=== PATIENT | female | born 1955 | race Caucasian/White ===

== ENCOUNTER → 2016-11-28 | Outpatient (CLI) | payer BC ==
--- NOTE | 2016-11-29 10:02 | MM ---
Reason for exam: screening (asymptomatic). Last mammogram was performed 1 year ago. History: Patient is postmenopausal. Family history of breast cancer in sister at age 40 and breast cancer in paternal aunt at age 80. Physical Findings: A clinical breast exam by your physician is recommended on an annual basis and results should be correlated with mammographic findings. MG 3D Screening Mammo W/Cad Bilateral CC and MLO view(s) were taken. Prior study comparison: December 07, 2015, bilateral MG screening mammo w CAD. November 25, 2014, bilateral MG screening mammo w CAD. The breast tissue is heterogeneously dense. This may lower the sensitivity of mammography. There is no discrete abnormality. No significant changes when compared with prior studies. ASSESSMENT: Negative, BI-RAD 1 RECOMMENDATION: Routine screening mammogram of both breasts in 1 year.
== END | disposition home or self-care (01) ==
LOC: RADMAMWWP 08:04
PROVIDERS: ATTEND Internal Medicine
DX: Z12.31 Encounter for screening mammogram for malignant neoplasm of breast (principal)
CPT/HCPCS: 77063; G0202

== ENCOUNTER → 2017-01-09 | Outpatient (CLI) | payer BC ==
--- NOTE | 2017-01-09 08:12 | BD ---
EXAMINATION TYPE: MG DEXA axial skeleton. DATE OF EXAM: 01/09/2017 7:36 AM CLINICAL HISTORY: Height: 66 Weight: 164 FRAX RISK QUESTIONS: Alcohol (3 or more units per day): no Family History (Parent hip fracture): no Glucocorticoids (More than 3mos): no (Ex: prednisone, prednisolone, methylprednisolone, dexamethasone, and hydrocortisone). History of Fracture in Adulthood: no Secondary Osteoporosis: 1. Type 1 Diabetes: no 2. Hyperthyroidism: no 3. Menopause before 45: no 4. Malnutrition: no 5. Chronic liver disease: no Rheumatoid Arthritis: no Current Tobacco Use: no RISK FACTORS HISTORY OF: Family History of Osteoporosis: yes, mother Drink Alcohol: very very minimal consumption Active: yes Diet low in dairy products/other sources of calcium: somewhat Postmenopausal woman: yes Take estrogen and/or progesterone medications: no Lost more than 2 inches in height since high school: no Frequent falls: no Poor Health: no Hyperparathyroidism: no Adrenal Insufficiency: no MEDICATIONS: Prednisone or other steroids: no Thyroid Medications: no Osteoporosis Medications: no EXAM MEASUREMENTS: Bone mineral densitometry was performed using the [employer] System. Bone mineral density as measured about the Lumbar spine is: ----- L1-L4(G/cm2): 0.995 T Score Values are as follows: ----- L2: -1.6 ----- L3: -1.7 ----- L4: -1.3 ----- L1-L4: -1.5 Bone mineral density BASELINE Bone mineral density about the R hip (g/cm2): 1.007 Bone mineral density about the L hip (g/cm2): 0.946 T Score values are as follows: -----R Neck: -0.2 -----L Neck: -0.7 -----R Intertrochanter: -0.2 -----L Intertrochanter: -0.5 Bone mineral density BASELINE IMPRESSION: Normal (Values between +1 and -1 indicate normal bone mass) Bilateral Hips Osteopenia (T Score between -2.5 and -1 as noted by T score values Lumbar Spine There is slightly increased risk of fracture and the patient may be considered for treatment. Re-Screen 1-2 years. NOTE: T-SCORE=SD OF THE YOUNG ADULT MEAN.
== END | disposition home or self-care (01) ==
LOC: RADBDWWP 07:09
PROVIDERS: ATTEND Internal Medicine
DX: M85.88 Other specified disorders of bone density and structure, other site (principal); Z78.0 Asymptomatic menopausal state
CPT/HCPCS: 77080

== ENCOUNTER → 2017-12-04 | Outpatient (CLI) | payer BC ==
--- NOTE | 2017-12-04 11:50 | PN ---
PROGRESS NOTE DATE OF SERVICE: 12/04/2017 A 62-year-old lady has been followed in the Sleep Center for treatment of obstructive sleep apnea-hypopnea syndrome. The patient continued to use her CPAP equipment every night but recently she started to wake up from sleep, developed a little bit more sleepiness during the day. [place] Sleepiness Scale is slightly increased to 9 today. She also is for changing of her mask. I checked patient's CPAP unit. CPAP pressure is 7 cm of water. Patient is using equipment 100% of the time more than 4 hours every 7 hours and 12 minutes. The machine does not have information about patient breathing during the sleep. MEDICATIONS: None. PHYSICAL EXAM: Patient in no distress. BP 114/82, HR 86, RR 16, height 5, 6, weight 168, BMI 27.9. Patient increased her weight around 8 pounds comparing with the weight during the titration. Temperature 97.3, oxygen saturation at room air 97%. OROPHARYNX: Wide pillars, short distance between soft palate and posterior pharyngeal wall. Neck Supple, no JVD. Thyroid is not palpable. LUNGS Clear to percussion and to auscultation. Good air exchange. No wheezing or rhonchi. HEART S1, S2 regular. No murmurs, gallops, or rubs. ABDOMEN Soft and nontender. Bowel sounds are present. No organomegaly appreciated. EXTREMITIES No clubbing or cyanosis. BURNER OPERATOR Awake, alert, and oriented X3. Cranial nerves 2 to 7 intact. There is no fasciculation or atrophy. noted. No focal deficits observed. IMPRESSION: 1. Obstructive sleep apnea-hypopnea syndrome. Patient demonstrated 100% compliance with treatment benefitting from treatment. Recently developed some sleepiness and awakenings on CPAP. 2. Status post tubal ligation. 3. Menopause. PLAN: 1. I increased pressure in CPAP unit up to 8 cm of water. 2. Prescription for CPAP supplies including mask, tube, filters and new water chamber. 3. Continue using equipment every night for the whole night. 4. No driving if feeling any sleepiness. Thank you very much for allowing me to participate in the management of your patient. Sincerely, Dereck Ochoa MD, PhD, FAASM Diplomat of [place] [employer] [place] [employer] Dressmaking Teacher of [facility] MMODL / IJN: [id number] /
== END | disposition home or self-care (01) ==
LOC: SLEEP 10:30
PROVIDERS: ATTEND Internal Medicine
DX: G47.33 Obstructive sleep apnea (adult) (pediatric) (principal); Z99.89 Dependence on other enabling machines and devices; Z98.51 Tubal ligation status; Z78.0 Asymptomatic menopausal state

== ENCOUNTER → 2017-12-17 | Outpatient (CLI) | payer BC ==
--- NOTE | 2017-12-18 13:32 | MM ---
Reason for exam: screening (asymptomatic). Last mammogram was performed 1 year and 1 month ago. History: Patient is postmenopausal. Family history of breast cancer in sister at age 40 and breast cancer in paternal aunt at age 80. Physical Findings: A clinical breast exam by your physician is recommended on an annual basis and results should be correlated with mammographic findings. MG Screening Mammo w CAD Bilateral CC and MLO view(s) were taken. Prior study comparison: November 28, 2016, bilateral MG 3d screening mammo w/cad. December 07, 2015, bilateral MG screening mammo w CAD. The breast tissue is heterogeneously dense. This may lower the sensitivity of mammography. No significant changes when compared with prior studies. ASSESSMENT: Negative, BI-RAD 1 RECOMMENDATION: Routine screening mammogram of both breasts in 1 year.
== END | disposition home or self-care (01) ==
LOC: RADMAMWWP 07:45
PROVIDERS: ATTEND Internal Medicine
DX: Z12.31 Encounter for screening mammogram for malignant neoplasm of breast (principal)
CPT/HCPCS: 77067

== ENCOUNTER → 2018-02-26 | Outpatient (CLI) | payer BC ==
--- NOTE | 2018-02-26 11:57 | SFUN ---
SLEEP CENTER FOLLOW UP NOTE DATE OF SERVICE: 02/26/2018 A 62-year-old lady who has been followed in the Sleep Center for treatment of obstructive sleep apnea-hypopnea syndrome. Recently, she received her CPAP unit. She is using CPAP equipment every night for the whole night without any problems. No snoring with the machine. [place] Sleepiness Scale is 9. She sleeps well. I checked patient's CPAP unit. Usage is 100% of the time more than 4 hours, average 6.8 hours. Pressure is 8 cm of water. Leak is up to 20 L/minute which is acceptable. Apnea-hypopnea index only 0.4, which is perfect. MEDICATIONS: None. PHYSICAL EXAM: BP 117/66, HR 72, RR 16, weight 166, temp 97.9, oxygen saturation at room air 97%. OROPHARYNX: Wide pillar, short distance between soft palate and posterior pharyngeal wall. Neck Supple, no JVD. Thyroid is not palpable. LUNGS Clear to percussion and to auscultation. Good air exchange. No wheezing or rhonchi. HEART S1, S2 regular. No murmurs, gallops, or rubs. ABDOMEN Soft and nontender. Bowel sounds are present. No organomegaly appreciated. EXTREMITIES No clubbing or cyanosis. SUPERINTENDENT WATER AND SEWER SYSTEMS Awake, alert, and oriented X3. Cranial nerves 2 to 7 intact. There is no fasciculation or atrophy. noted. No focal deficits observed. IMPRESSION: 1. Obstructive sleep apnea-hypopnea syndrome. Patient demonstrated 100% compliance with treatment benefitting from treatment. 2. Status post tubal ligation. 3. Menopause. PLAN: 1. Continue treatment with CPAP every night for the whole night with a pressure of 8 cm of water. 2. No driving if feeling sleepiness. 3. Sleep hygiene with regular time in bed for at least 8 hours. Thank you very much for allowing me to participate in the management of your patient. Sincerely, Dereck Ochoa MD, PhD, FAASM Diplomat of [place] [employer] [place] [employer] Client Relations Specialist of [facility] [place] MMLORIE / ISAURA: [id number] /
== END | disposition home or self-care (01) ==
LOC: SLEEP 10:27
PROVIDERS: ATTEND Internal Medicine
DX: G47.33 Obstructive sleep apnea (adult) (pediatric) (principal); Z98.890 Other specified postprocedural states; Z78.0 Asymptomatic menopausal state; Z99.89 Dependence on other enabling machines and devices

== ENCOUNTER → 2018-11-27 | Outpatient (CLI) | payer BC ==
--- NOTE | 2018-12-04 08:20 | MM ---
Reason for exam: screening (asymptomatic). Last mammogram was performed 11 months ago. History: Patient is postmenopausal. Family history of breast cancer in sister at age 40 and breast cancer in paternal aunt at age 80. MG Screening Mammo w CAD Bilateral CC and MLO view(s) were taken. Prior study comparison: December 17, 2017, bilateral MG screening mammo w CAD. November 28, 2016, bilateral MG 3d screening mammo w/cad. The breast tissue is heterogeneously dense. This may lower the sensitivity of mammography. No suspiciou abnormality. No significant changes when compared with prior studies. ASSESSMENT: Negative, BI-RAD 1 RECOMMENDATION: Routine screening mammogram of both breasts in 1 year.
== END | disposition home or self-care (01) ==
LOC: RADMAMWWP 10:35
PROVIDERS: ATTEND Internal Medicine
DX: Z12.31 Encounter for screening mammogram for malignant neoplasm of breast (principal)
CPT/HCPCS: 77067

== ENCOUNTER → 2019-04-08 | Outpatient (CLI) | payer BC ==
--- NOTE | 2019-04-08 11:39 | PN ---
PROGRESS NOTE DATE OF SERVICE: 04/08/2019 63-year-old lady has been followed in Sleep Center for treatment of obstructive sleep apnea-hypopnea syndrome. Patient successfully continued to use her CPAP equipment every night without significant problems related to mask fitting, pressure and humidification. The patient is using a nasal mask. [place] Sleepiness Scale today is 3, which is normal. I checked the patient's CPAP unit. Usage is 100% of night more than 4 hours. Average usage is 6.9 hours. Pressure is 8 cm of water. Apnea-hypopnea index only 0.3, which is absolutely perfect. MEDICATIONS: None. PHYSICAL EXAM: Patient in no distress. BP 127/71, HR 70, RR 16, height 5 feet 6 inches, weight 172 pounds. Body mass index 27.7, temperature 98.2, oxygen saturation at room air 95% HEENT: Oropharynx: Short distance between soft palate and pharyngeal wall. Wide pillars. Neck Supple, no JVD. Thyroid is not palpable. LUNGS Clear to percussion and to auscultation. Good air exchange. No wheezing or rhonchi. HEART S1, S2 regular. No murmurs, gallops, or rubs. ABDOMEN Soft and nontender. Bowel sounds are present. No organomegaly appreciated. EXTREMITIES No clubbing or cyanosis. TEA BAG MACHINE TENDER Awake, alert, and oriented X3. Cranial nerves 2 to 7 intact. There is no fasciculation or atrophy. noted. No focal deficits observed. IMPRESSION: 1. Obstructive sleep apnea-hypopnea syndrome, on full control with CPAP. Patient demonstrated 100% compliance with treatment benefitting from treatment. 2. Status post tubal ligation. 3. Menopause. PLAN: 1. Patient will continue to use CPAP equipment every night. 2. Prescription for all necessary CPAP supplies including mask, tube, filters. 3. Watching weight. The patient increased her weight on 6 pounds since previous visit. 4. No driving if feeling sleepiness. 5. Followup visit in 1 year or earlier if patient has any problems. Thank you very much for allowing me to participate in management of your patient. Sincerely, Dereck Ochoa MD, PhD, FAASM Diplomat of [employer] [place] [employer] Medicine Manager [facility] [place] MMODL / IJN: [id number] /
== END | disposition home or self-care (01) ==
LOC: SLEEP 10:05
PROVIDERS: ATTEND Internal Medicine
DX: G47.33 Obstructive sleep apnea (adult) (pediatric) (principal); Z98.51 Tubal ligation status; Z78.0 Asymptomatic menopausal state; Z99.89 Dependence on other enabling machines and devices

== ENCOUNTER → 2019-08-30 | Outpatient (CLI) | payer BC ==
--- NOTE | 2019-08-30 09:47 | US ---
EXAMINATION TYPE: US gallbladder DATE OF EXAM: 08/30/2019 COMPARISON: NONE CLINICAL HISTORY: R10.13 Epigastric pain. Severe epigastric pain x d2 or 3 episodes EXAM MEASUREMENTS: Liver Length: 15.4 cm Gallbladder Wall: 0.1 cm CBD: 0.5 cm Right Kidney: 9.8 x 4.9 x 4.1 cm Pancreas: wnl Liver: wnl Gallbladder: nonmobile, shadowing stone = 3.5 x 2.5 x 1.0cm seen in neck (JOE sign); sludge in mid a nd fundal portions; wall polyp versus adenomyomatosis in fundal anterior wall with questionable comet tail artifact Evidence for sonographic Toussaint's sign: not at time of US CBD: wnl Right Kidney: No hydronephrosis or masses seen IMPRESSION: No sonographic evidence of acute cholecystitis however there are calculi seen in the gall bladder neck with biliary sludge in the gallbladder body and fundus as well as a nondependent anterio r fundal polyp versus segmental adenomyomatosis.
== END | disposition home or self-care (01) ==
LOC: RADUSMAIN 08:01
PROVIDERS: ATTEND Internal Medicine
DX: R10.13 Epigastric pain (principal)
CPT/HCPCS: 76705

== ENCOUNTER → 2019-09-09 | Outpatient (CLI) | payer BC ==
[2019-09-09 11:51] LABS: Basophils # (A) 0.1 k/uL (0-0.2); Basophils % (A) 2 %; Eosinophils # (A) 0.6 k/uL (0-0.7); Eosinophils % (A) 8 %; HCT 44.8 % (34.0-46.0); HGB 14.3 gm/dL (11.4-16.0); Lymphocytes # (A) 2.3 k/uL (1.0-4.8); Lymphocytes % (A) 30 %; MCH 29.6 pg (25.0-35.0); MCV 92.6 fL (80.0-100.0); Mean Platelet Volume 6.4; Monocytes # (A) 0.4 k/uL (0-1.0); Monocytes % (A) 6 %; Neutrophils % (A) 52 %; Platelet Count 327 k/uL (150-450); RBC 4.84 m/uL (3.80-5.40); RDW 12.3 % (11.5-15.5); WBC 7.7 k/uL (3.8-10.6)
[2019-09-09 19:35] LABS: African American GFR (CKD) 56.1 (60.0-200.0); Albumin 4.6 g/dL (3.80-4.90); Anion Gap 9.2 mmol/L (4.00-12.00); BUN/Creat Ratio 18.33 Ratio (12.00-20.00); Calcium 9.5 mg/dL (8.7-10.3); Carbon Dioxide 28.8 mmol/L (21.6-31.8); Globulin 2.3 g/dL (1.6-3.3); Potassium 5.1 mmol/L (3.5-5.5); Total Bilirubin 0.5 mg/dL (0.2-1.2); Total Protein 6.9 g/dL (6.2-8.2)
== END | disposition home or self-care (01) ==
LOC: LABWHC1 10:25
PROVIDERS: ATTEND Surgery
DX: K81.9 Cholecystitis, unspecified (principal)
CPT/HCPCS: 36415; 80053; 83690; 85025

== ENCOUNTER 2019-09-20 06:14 | Day surgery (SDC) | payer BC ==
[2019-09-16 09:29] VITALS: BMI 26.6
[~2019-09-20 06:14] MED LIST: DEXAMETHASONE SOD PHOSPHATE 10 MG/ML 1 ML VIAL IV ONE; HEPARIN SODIUM,PORCINE 5,000 UNIT/ML 1 ML VIAL SQ ONE; HYDROmorphone 0.5 MG/0.5 ML SYRINGE IVP PRN; LACTATED RINGERS 1,000 ML IV SCH; MIDAZOLAM 2 MG/2 ML VIAL IV PRN; ONDANSETRON 4 MG/2 ML VIAL IVP ONE; SCOPOLAMINE 1.5MG/72HR PATCH TRANSDERM ONE
[2019-09-20] MEDS ORDERED: LIDOCAINE 1% 20 ML VIAL (10MG/ML) FOR IV START INTRADERMA ONE (06:32)
[2019-09-20] MEDS ORDERED: LACTATED RINGERS 1,000 ML IV ONE ×2 (06:49→08:53)
[2019-09-20] MEDS ORDERED: NEOSTIGMINE 1 MG/ML 10 ML VIAL ONE (07:38)
[2019-09-20] MEDS ORDERED: KETOROLAC 30 MG/ML 1 ML VIAL ONE (07:38)
[2019-09-20] MEDS ORDERED: NALOXONE 0.4 MG/ML 1 ML VIAL ONE (07:38)
[2019-09-20] MEDS ORDERED: GLYCOPYRROLATE 0.2 MG/ML 2 ML VIAL ONE (07:38)
[2019-09-20] MEDS ORDERED: PROPOFOL 10 MG/ML 20 ML VIAL IV ONE (07:38)
[2019-09-20] MEDS ORDERED: MIDAZOLAM 2 MG/2 ML VIAL ONE (07:38)
[2019-09-20] MEDS ORDERED: ROCURONIUM BROMIDE 10 MG/ML 10 ML VIAL IV ONE (07:38)
[2019-09-20] MEDS ORDERED: fentaNYL (PF) 50 MCG/ML 2 ML AMP ONE (07:38)
[2019-09-20] MEDS ORDERED: LIDOCAINE 1% INJ 10MG/ML (20 ML MDV) ONE (07:38)
[2019-09-20] MEDS ORDERED: BUPIVACAINE (PF) 0.25% 30 ML VIAL SQ ONE (08:09)
--- NOTE | 2019-09-20 08:59 | P.OP ---
Date of Procedure: 09/20/19 Procedure(s) Performed: PREOPERATIVE DIAGNOSIS: Chronic cholecystitis POSTOPERATIVE DIAGNOSIS: Same, umbilical hernia PROCEDURE: Laparoscopic cholecystectomy, repair umbilical hernia SURGEON: Moris EBL: Minimal see anesthesia record ANESTHESIA: Gen. COMPLICATIONS: None OPERATIVE PROCEDURE: The patient was brought and placed on the operating room table in the supine position. The patient was placed under general anesthesia at that time. The abdomen was prepped and draped in the usual sterile fashion. A small vertical infraumbilical incision was made. The patient had a small hernia identified at that time. A less than 1 cm piece of fat was coming through a small defect in the fascia. This was excised using electrocautery. Through that same defect the Veress needle was advanced into the peritoneal cavity. The saline drop test was normal. Insufflation took place up to 15 mmHg. A 5 mm optical trocar was advanced and the peritoneal cavity. 2 additional 5 mm trochars were placed in the right upper quadrant under direct visualization. A 12 mm trocar was advanced into the epigastric incision site. The gallbladder was retracted superiorly and laterally. The peritoneum overlying the infundibulum was bluntly dissected. The patient's cystic duct was visualized. The junction between the cystic duct common and hepatic duct was identified. The cystic duct was then divided after placement of 3 12 mm clips on the patient's side and one on the specimen side. The cystic artery was iden tified and clipped as well. A small vessel was seen along the gallbladder fossa and clipped as well. The gallbladder was then removed from the liver bed using electrocautery. The gallbladder was then removed from the epigastric trocar site with an Endo Catch bag. This required lengthening of the incision and the fascia given the size of the stone. The gallbladder fossa was irrigated with saline. There was no evidence of any bleeding or biliary drainage seen. The fascia at the 12 millimeter site was closed using a running 0 Vicryl stitch. The trochars were then removed. An additional 0 Vicryl stitch was used to close the defect at the umbilicus. The skin at all 4 sites was closed using a 4-0 Monocryl stitch. Skin glue was utilized on the incision sites. At the end of this procedure the sponge and needle counts were correct. DISPOSITION: Stable to the recovery room
[2019-09-20 09:12] VITALS: RESP 16; TEMP 97.4
[2019-09-20 11:13] VITALS: BP 148/80; PULSE 72
== END 2019-09-20 11:10 | disposition home or self-care (01) ==
LOC: OR 06:14
PROVIDERS: ATTEND Surgery
DX: K80.10 Calculus of gallbladder with chronic cholecystitis without obstruction (principal); K42.9 Umbilical hernia without obstruction or gangrene; Z82.49 Family history of ischemic heart disease and other diseases of the circulatory system; Z80.3 Family history of malignant neoplasm of breast; Z80.43 Family history of malignant neoplasm of testis; Z84.89 Family history of other specified conditions; Z88.0 Allergy status to penicillin; G47.33 Obstructive sleep apnea (adult) (pediatric); Z99.89 Dependence on other enabling machines and devices; Z98.51 Tubal ligation status
CPT/HCPCS: 47562; 49585; 88304; J2250; J1644; J1100; J2310; J2710; J0690; J2405; J2001; J3010; J1885; J2704

== ENCOUNTER → 2019-12-01 | Outpatient (CLI) | payer BC ==
--- NOTE | 2019-12-03 08:23 | MM ---
Reason for exam: screening (asymptomatic). Last mammogram was performed 1 year ago. History: Patient is postmenopausal. Family history of breast cancer in sister at age 40 and breast cancer in paternal aunt at age 80. Physical Findings: A clinical breast exam by your physician is recommended on an annual basis and results should be correlated with mammographic findings. MG Screening Mammo w CAD Bilateral CC and MLO view(s) were taken. Prior study comparison: November 27, 2018, bilateral MG screening mammo w CAD. December 17, 2017, bilateral MG screening mammo w CAD. The breast tissue is heterogeneously dense. This may lower the sensitivity of mammography. No suspicious abnormality. No significant changes when compared with prior studies. ASSESSMENT: Negative, BI-RAD 1 RECOMMENDATION: Routine screening mammogram of both breasts in 1 year.
== END | disposition home or self-care (01) ==
LOC: RADMAMWWP 07:10
PROVIDERS: ATTEND Internal Medicine
DX: Z12.31 Encounter for screening mammogram for malignant neoplasm of breast (principal)
CPT/HCPCS: 77067

== ENCOUNTER → 2019-12-21 | Outpatient (CLI) | payer BC ==
--- NOTE | 2019-12-21 08:49 | US ---
EXAMINATION TYPE: US kidneys/renal and bladder DATE OF EXAM: 12/21/2019 COMPARISON: NONE CLINICAL HISTORY: 64-year-old female N18.9 chronic kidney disease. CKD TECHNIQUE: Multiple sonographic images of the kidneys and bladder are obtained. FINDINGS: EXAM MEASUREMENTS: Right Kidney: 8.8 x 3.8 x 4.1 cm Left Kidney: 10.1 x 4.6 x 4.0 cm No hydronephrosis on either side. Bladder: wnl Bilateral Jets seen: No IMPRESSION: No hydronephrosis.
== END | disposition home or self-care (01) ==
LOC: RADUSWWP 06:53
PROVIDERS: ATTEND Internal Medicine
DX: N18.9 Chronic kidney disease, unspecified (principal)
CPT/HCPCS: 76770

== ENCOUNTER 2020-04-28 09:17 | Day surgery (SDC) | payer BC ==
[2020-04-26 10:16] VITALS: BMI 27.4
[~2020-04-28 09:17] MED LIST changes: -DEXAMETHASONE SOD PHOSPHATE 10 MG/ML 1 ML VIAL IV ONE; -HEPARIN SODIUM,PORCINE 5,000 UNIT/ML 1 ML VIAL SQ ONE; -HYDROmorphone 0.5 MG/0.5 ML SYRINGE IVP PRN; +LIDOCAINE 1% (10MG/ML) FOR IV START INTRADERMA PRN; -ONDANSETRON 4 MG/2 ML VIAL IVP ONE; -SCOPOLAMINE 1.5MG/72HR PATCH TRANSDERM ONE
[2020-04-28 09:49] VITALS: RESP 16; TEMP 96.6
[2020-04-28] MEDS ORDERED: PROPOFOL 10 MG/ML 20 ML VIAL IV ONE (09:53)
--- NOTE | 2020-04-28 10:07 | P.PCN ---
Date of Procedure: 04/28/20 Procedure(s) Performed: BRIEF HISTORY: Patient is a 64-year-old pleasant female scheduled for an elective colonoscopy as a part of screening for colorectal neoplasia. PROCEDURE PERFORMED: Colonoscopy with snare polypectomy. PREOPERATIVE DIAGNOSIS: Screening for colon cancer. IV sedation per Anesthesia. PROCEDURE: After informed consent was obtained, the patient, was brought into the endoscopy unit. IV sedation was administered by Anesthesia under continuous monitoring. Digital rectal examination was normal. Initially the Olympus CF-160 flexible video colonoscope was then inserted in the rectum, gradually advanced into the cecum without any difficulty. Careful examination was performed as the scope was gradually being withdrawn. Ileocecal valve and the appendiceal orifice were visualized and appeared normal. Prep was excellent. In the base of the cecum there was a 5 mm polyp that was removed by snare polypectomy. Mucosa of the cecum, ascending colon, transverse colon, descending colon, sigmoid colon, and rectum appeared normal. Retroflexion was performed in the rectum and no lesi ons were seen. The patient tolerated the procedure well. IMPRESSION: 5 mm cecal polyp status post polypectomy Rest of the colon appeared RECOMMENDATIONS: Findings of this examination were discussed with the patient as well as a family. She was advised to follow with the biopsy results. If the biopsy shows an adenoma she can have a repeat colonoscopy in 5 years.
[2020-04-28 10:40] VITALS: BP 118/75; PULSE 65
== END 2020-04-28 10:48 | disposition home or self-care (01) ==
LOC: ORWHC2ENDO 09:17
PROVIDERS: ATTEND Internal Medicine Gastroenterology
DX: Z12.11 Encounter for screening for malignant neoplasm of colon (principal); K63.5 Polyp of colon; Z88.0 Allergy status to penicillin; Z90.49 Acquired absence of other specified parts of digestive tract; Z98.51 Tubal ligation status
CPT/HCPCS: 88305; 45385; J2704

== ENCOUNTER → 2020-10-18 | Outpatient (CLI) | payer BC ==
--- NOTE | 2020-10-19 05:16 | SFUN ---
SLEEP CENTER FOLLOW UP NOTE DATE OF SERVICE: 10/18/2020 This 64-year-old lady who has been followed in Sleep Center for treatment of obstructive sleep apnea-hypopnea syndrome. The patient successfully continuing to use her CPAP equipment every night, does not snore with the machine. Sometimes she has awakenings in the middle of the night and then she may read for about one hour and then she will fall asleep again. I checked her CPAP unit. Usage is 100% of night for more than 4 hours. Average usage is 7.3 hours per night. CPAP pressure is 8 cm of water. Leak is up to 28 L/minute. Apnea-hypopnea index was only 0.5, which is perfect. MEDICATIONS: Melatonin. [place] Sleepiness Scale is 7. PHYSICAL EXAMINATION: GENERAL: Patient in no distress. VITAL SIGNS: BP 124/65, HR 76, RR 15, height 5 feet 6 inches, weight 174 pounds, body mass index 28.0, temperature 98, oxygen saturation at room air 98%. HEENT: PERRLA, EOMI. Oropharynx short distance between soft palate and pharyngeal wall. NECK: Supple, no JVD. Thyroid is not palpable. LUNGS: Clear to percussion and to auscultation. Good air exchange. No wheezing or rhonchi. HEART: S1, S2 regular. No murmurs, gallops, or rubs. ABDOMEN: Soft and nontender. Bowel sounds are present. No organomegaly appreciated. EXTREMITIES: No clubbing or cyanosis. WASTE DISPOSAL LEAKAGE TESTER: Awake, alert, and oriented X3. Cranial nerves 2 to 7 intact. There is no fasciculation or atrophy. noted. No focal deficits observed. IMPRESSION: 1. Obstructive sleep apnea-hypopnea syndrome. Patient demonstrated 100% compliance with treatment, benefitting from treatment. 2. Episodes of insomnia. 3. Menopause. 4. Status post tubal ligation. PLAN: 1. Patient will continue to use PAP equipment every night for the whole night. 2. Sleep hygiene with regular time in bed for at least 7-1/2 to 8 hours. 3. Precautions related to driving. No driving if feeling sleepiness. 4. I will maintain all necessary prescription for PAP supplies including mask, tube, filters. 5. Watching weight. 6. No driving if feeling sleepiness. 7. Follow-up visit in 6 months or earlier if patient has any problems. 8. I discussed with the patient psychological techniques for treatment of insomnia including paradoxical intention and stimulus control. Thank you very much for allowing me to participate in management of your patient. Sincerely, Dereck Ochoa MD, PhD, FAASM Diplomat of [place] [employer] [place] [employer] Performance Test Engineer of [facility] [place] MMODL / BINUN: [id number] /
== END | disposition home or self-care (01) ==
LOC: SLEEP 16:16
PROVIDERS: ATTEND Internal Medicine
DX: G47.33 Obstructive sleep apnea (adult) (pediatric) (principal); G47.00 Insomnia, unspecified; Z99.89 Dependence on other enabling machines and devices; Z78.0 Asymptomatic menopausal state; Z98.51 Tubal ligation status

== ENCOUNTER → 2021-01-18 | Outpatient (CLI) | payer BC ==
--- NOTE | 2021-01-18 14:42 | MM ---
Reason for exam: screening (asymptomatic). Last mammogram was performed 1 year and 2 months ago. History: Patient is postmenopausal. Family history of breast cancer in sister at age 40 and breast cancer in paternal aunt at age 80. Physical Findings: A clinical breast exam by your physician is recommended on an annual basis and results should be correlated with mammographic findings. MG 3D Screening Mammo W/Cad Bilateral CC, MLO, and XCCL view(s) were taken. Prior study comparison: December 01, 2019, bilateral MG screening mammo w CAD. November 27, 2018, bilateral MG screening mammo w CAD. The breast tissue is heterogeneously dense. This may lower the sensitivity of mammography. Finding: There is a 4 mm oval mass located 3 cm from the nipple in the anterior position of the right breast, CC 11/60 and MLO 23/64. Benign bilateral axillary lymph nodes. New finding since December 01, 2019 and November 27, 2018. ASSESSMENT: Incomplete: need additional imaging evaluation, BI-RAD 0 RECOMMENDATION: Ultrasound of the right breast. [facility] will attempt to contact patient to return for ultrasound.
== END ==
LOC: RADMAMWWP 09:56
PROVIDERS: ATTEND Internal Medicine Geriatric Medicine
DX: Z12.31 Encounter for screening mammogram for malignant neoplasm of breast (principal); Z78.0 Asymptomatic menopausal state; Z80.3 Family history of malignant neoplasm of breast
CPT/HCPCS: 77063; 77067

== ENCOUNTER → 2021-01-22 | Outpatient (CLI) | payer BC ==
--- NOTE | 2021-01-22 17:06 | BD ---
EXAMINATION TYPE: Axial Bone Density DATE OF EXAM: 01/22/2021 COMPARISON: 01.09.2017 CLINICAL HISTORY: 65 YR OLD FEMALE.....ICD-10 CODE: M81.0 OSTEOPOROSIS Height: 65.4 Weight: 166 FRAX RISK QUESTIONS: NOTHING TO NOTE HERE RISK FACTORS HISTORY OF: Family History of Osteoporosis: YES, HER MOTHER WITHOUT HIP FX Active: YES Postmenopausal woman: YES, AT ABOUT 56 Hyperparathyroidism: NO Adrenal Insufficiency: NO MEDICATIONS: Additional Medications: VIT D AND MULTIVITAMIN Additional History: NOTHING ADDITIONAL EXAM MEASUREMENTS: Bone mineral densitometry was performed using the [employer] System. Bone mineral density as measured about the Lumbar spine is: ----- L1-L4(G/cm2): 1.015 T Score Values are as follows: ----- L1: -1.7 ----- L2: -1.4 ----- L3: -1.4 ----- L4: -1.2 ----- L1-L4: -1.4 Bone mineral density has: Increased 2.6% since study of: 01.09.2017 Bone mineral density about the R hip (g/cm2): 1.063 Bone mineral density about the L hip (g/cm2): 1.022 T Score values are as follows: -----R Neck: -0.2 -----L Neck: -0.7 -----R Total: 0.4 -----L Total: 0.1 Bone mineral density has: Increased 1.5% since study of: 01.09.2017 FRAX%s: THERE IS A 7.4% CHANCE FOR A MAJOR OSTEOPOROTIC FX AND A 0.4% FOR HIP......PROBABILITY FOR FX IN 10 YRS TIME IMPRESSION: Osteopenia (T Score between -2.5 and -1). There is slightly increased risk of fracture and the patient may be considered for treatment. Re-Screen 2-5 years. NOTE: T-SCORE=SD OF THE YOUNG ADULT MEAN.
== END | disposition home or self-care (01) ==
LOC: RADBDWWP 07:12
PROVIDERS: ATTEND Internal Medicine Geriatric Medicine
DX: M85.80 Other specified disorders of bone density and structure, unspecified site (principal)
CPT/HCPCS: 77080

== ENCOUNTER → 2021-01-25 | Outpatient (CLI) | payer BC ==
--- NOTE | 2021-01-25 09:24 | USB ---
Reason for exam: additional evaluation requested from abnormal screening. History: Patient is postmenopausal. Family history of breast cancer in sister at age 40 and breast cancer in paternal aunt at age 80. Physical Findings: Nurse did not find any significant physical abnormalities on exam. US Breast Workup Limited RT Technologist: Poly Mendez Right limited breast ultrasound including focal area of concern, retroareolar and axilla demonstrates a 0.3 x 0.3 x 0.2cm lesion too small to characterize at 5 o'clock and ducts at the nipple. These results were verbally communicated with the patient and result sheet given to the patient on 01/25/21. ASSESSMENT: Probably benign, BI-RAD 3 RECOMMENDATION: Follow-up diagnostic mammogram of the right breast in 6 months.
== END | disposition home or self-care (01) ==
LOC: RADUSWWP 07:19
PROVIDERS: ATTEND Internal Medicine Geriatric Medicine
DX: R92.8 Other abnormal and inconclusive findings on diagnostic imaging of breast (principal)

== ENCOUNTER → 2021-10-24 | Outpatient (CLI) | payer BC ==
--- NOTE | 2021-10-24 11:52 | SFUN ---
SLEEP CENTER FOLLOW UP NOTE DATE OF SERVICE: 10/24/2021 This 65-year-old lady has been followed in Sleep Center for treatment of obstructive sleep apnea-hypopnea syndrome. The patient continues to use her CPAP equipment every night for the whole night. No sleepiness during the day. [place] Sleepiness Scale is 2. I checked her CPAP unit. Pressure is 8 cm of water. Usage is every night and 28/30 nights for more than 4 hours, average 7.1 hours per night. Leak is 24 L/minute, which is borderline. Apnea-hypopnea index is 0.5, which is normal. MEDICATIONS: Vitamin supplements. PHYSICAL EXAMINATION: GENERAL: Patient in no distress. VITAL SIGNS: BP 122/82, HR 60, R 16, height 5 feet 6 inches, weight 166.6, temperature 96.7, body mass index 26.7, oxygen saturation at room air 99%. HEENT: PERRLA, EOMI, evaluation of oropharynx showed tongue protrudes midline. Short distance between soft palate and pharyngeal wall. NECK: Supple, no JVD. Thyroid is not palpable. LUNGS: Clear to percussion and to auscultation. Good air exchange. No wheezing or rhonchi. HEART: S1, S2 regular. No murmurs, gallops, or rubs. ABDOMEN: Soft and nontender. Bowel sounds are present. No organomegaly appreciated. EXTREMITIES: No clubbing or cyanosis. STORE PROTECTION SPECIALIST: Awake, alert, and oriented X3. Cranial nerves 2 to 7 intact. There is no fasciculation or atrophy. noted. No focal deficits observed. IMPRESSION: 1. Obstructive sleep apnea-hypopnea syndrome. Patient demonstrated great compliance with treatment, benefitting from treatment. 2. Menopause. 3. History of episodes of insomnia. No significant problems at the present time. 4. Status post tubal ligation. PLAN: 1. Patient will continue to use PAP equipment every night for the whole night. 2. Sleep hygiene with regular time in bed for at least 7-1/2 to 8 hours. 3. Precautions related to driving. No driving if feeling sleepiness. 4. I will maintain all necessary prescription for PAP supplies including mask, tube, filters. 5. Watching weight. 6. Follow-up visit in one year or earlier if patient has any problems. Thank you very much for allowing me to participate in the management of your patient. Sincerely, Dereck Ochoa MD, PhD, FAASM Diplomat of [place] [employer] Sleep Medicine Board of [place] [employer] Manager of [facility] [place] MMLROIE / ISAURA: [id number] /
== END ==
LOC: SLEEP 10:28
PROVIDERS: ATTEND Internal Medicine
DX: G47.33 Obstructive sleep apnea (adult) (pediatric) (principal); Z78.0 Asymptomatic menopausal state; Z98.51 Tubal ligation status; Z99.89 Dependence on other enabling machines and devices; Z88.0 Allergy status to penicillin; Z91.013 Allergy to seafood

== ENCOUNTER → 2022-01-29 | Outpatient (CLI) | payer MEDICARE ==
--- NOTE | 2022-01-29 09:15 | MM ---
Reason for exam: additional evaluation requested from prior study. Last mammogram was performed 1 year ago. History: Patient is postmenopausal. Family history of breast cancer in sister at age 40 and breast cancer in paternal aunt at age 80. Physical Findings: A clinical breast exam by your physician is recommended on an annual basis and results should be correlated with mammographic findings. MG 3D Diag Mammo W/Cad [facility] Bilateral CC and MLO view(s) were taken. Prior study comparison: January 18, 2021, bilateral MG 3d screening mammo w/cad. December 01, 2019, bilateral MG screening mammo w CAD. The breast tissue is heterogeneously dense. This may lower the sensitivity of mammography. Stable circumscribed 4mm nodule 4 o'clock right breast stable for 1 year, additional 1 year follow up recommended. No significant change. No significant new findings when compared with previous films. These results were verbally communicated with the patient and result sheet given to the patient on 01/29/22. ASSESSMENT: Probably benign, BI-RAD 3 RECOMMENDATION: Follow-up diagnostic mammogram of both breasts in 1 year.
== END | disposition home or self-care (01) ==
LOC: RADMAMWWP 07:45
PROVIDERS: ATTEND Internal Medicine Geriatric Medicine
DX: R92.8 Other abnormal and inconclusive findings on diagnostic imaging of breast (principal); Z78.0 Asymptomatic menopausal state; Z80.3 Family history of malignant neoplasm of breast
CPT/HCPCS: 77066; G0279; 77062

== ENCOUNTER → 2022-10-24 | Outpatient (CLI) | payer BC ==
--- NOTE | 2022-10-24 11:07 | P.PN ---
Subjective DATE: 10/24/2022 FOLLOW UP VISIT. Patient with obstructive sleep apnea hypopnea syndrome return to sleep center for follow-up visit. Information from previous visit have been reviewed. Patient is using PAP equipment every night for the whole night, getting PAP supplies in time. The patient does not have significant problems with the mask, PAP unit and humidification. [place] sleepiness scale is 7, which is normal. I checked information from PAP unit. PAP unit pressure 8 cm H2O. Usage is 100 % for more then 4 hours, average 6.9 hours per night. Leak is 28 l/m, which is in acceptable range. Apnea Hypopnea Index is 0.4, which is perfect. MEDICATIONS:1. Vitamins During physical exam: GENERAL: A pleasant patient without any distress. VITAL SIGNS: BP 121/84, HR 72, RR 14 , weight 155.6, temperature 97.2, oxygen saturation at room air 95 % . HEENT: PERRLA, EOMI.low position of soft palate . NECK: Supple. No JVD. LUNGS: Clear to percussion and to auscultation. Good air exchange. No wheezing or rhonchi. HEART: S1, S2 regular. ABDOMEN: Soft and nontender.[] EXTREMITIES: No clubbing or cyanosis. LASER ENGINEER: Awake, alert, and oriented x3. No focal deficit. Impressions: 1. Obstructive sleep apnea-hypopnea syndrome. Patient demonstrated great compliance with treatment, benefiting from treatment. 2. History of insomnia episodes, no significant problems presently. 3. Status post tubal ligation. Plan: 1. Continue using PAP equipment every night for the whole night. 2. To change air filter at least 1-2 times per month. 3. PAP unit should stay lower then position of the head. 4. Advised patient to remove all remaining water from humidifier canister daily and make it dry after each usage. Refill canister with fresh distilled water before each usage. 5. Sleep hygiene with regular time in bed for at least 8 hours. 6. Precautions related to driving. No driving if feel any sleepiness. 7. I will maintain prescription for PAP supplies including mask, tube, filters. 8. Follow up visit in 12 months or earlier if patient has any problems. 9. Watching weight. Thank you very much for allowing me to participate in the management of your patient. Dereck Ochoa MD, PhD, FAASM. Diplomat of [employer], Sleep Medicine Board by [employer] Senior Sql Server Database Developer of [facility] [place]
== END ==
LOC: SLEEP 10:15
PROVIDERS: ATTEND Internal Medicine
DX: G47.33 Obstructive sleep apnea (adult) (pediatric) (principal); Z98.51 Tubal ligation status; Z99.89 Dependence on other enabling machines and devices; Z88.0 Allergy status to penicillin; Z91.013 Allergy to seafood; Z87.898 Personal history of other specified conditions
CPT/HCPCS: 99212

== ENCOUNTER → 2023-02-10 | Outpatient (CLI) | payer MEDICARE ==
--- NOTE | 2023-02-10 07:55 | MM ---
Reason for Exam: Follow-up at short interval from prior study. Last screening mammogram was performed 12 month(s) ago. Patient History: Menarche at age 17. First Full-Term at age 27. Postmenopausal. Paternal aunt had breast cancer, age 80. Sister had breast cancer, age 40. Risk Values: Fariha 5 year model risk: 3.0%. NCI Lifetime model risk: 10.6%. Tissue Density: The breast tissue is heterogeneously dense. This may lower the sensitivity of mammography. Findings: Analyzed By CAD. Stable chronic right-sided nodularity. No suspicious appearing masses or distortion. No suspicious microcalcifications. Overall Assessment: Benign, BI-RAD 2 Management: Screening Mammogram of both breasts in 1 year. A clinical breast exam by your physician is recommended on an annual basis and results should be correlated with mammographic findings. This exam should not preclude additional follow-up of suspicious palpable abnormalities. Results were given to the patient verbally at the time of exam. Electronically signed and approved by: Brady Serra M.D. Radiologis
== END | disposition home or self-care (01) ==
LOC: RADMAMWWP 07:28
PROVIDERS: ATTEND Internal Medicine Geriatric Medicine
DX: Z12.31 Encounter for screening mammogram for malignant neoplasm of breast (principal); Z80.3 Family history of malignant neoplasm of breast; Z78.0 Asymptomatic menopausal state
CPT/HCPCS: 77066; G0279; 77062

== ENCOUNTER → 2023-10-22 | Outpatient (CLI) | payer MEDICARE ==
--- NOTE | 2023-10-22 10:59 | P.PN ---
Subjective DATE: 10/22/2023 FOLLOW UP VISIT. Patient with obstructive sleep apnea hypopnea syndrome return to sleep center for follow-up visit. Information from previous visit have been reviewed. Patient is using PAP equipment every night for the whole night, getting PAP supplies in time. The patient does not have significant problems with the mask, PAP unit. [place] sleepiness scale is 6, which is normal. I checked information from PAP unit. PAP unit pressure 8 cm H2O. Usage is 97% and 87 % for more then 4 hours, average 7 hours per night. Leak is 22.1 l/m, which is in acceptable range. Apnea Hypopnea Index is 0.7, which is normal. Patient has some problems related to humidity. We discussed in details how to adjust humidity including adjustments temperature in the tube. I believe temperature 90 tube was not sufficient and this is the reason for condensation of water in the tube. Patient did not bring heated tube with her, was not able to check temperature in the tube. MEDICATIONS: None at the present time During physical exam: GENERAL: A pleasant patient without any distress. VITAL SIGNS: BP 131/89, HR 88, RR 16 , weight 161, temperature 98.3, oxygen saturation at room air 97 % . HEENT: PERRLA, EOMI.low position of soft palate, Mallapati 3 . NECK: Supple. No JVD. LUNGS: Clear to percussion and to auscultation. Good air exchange. No wheezing or rhonchi. HEART: S1, S2 regular. ABDOMEN: Soft and nontender.[] EXTREMITIES: No clubbing or cyanosis. TALENT MANAGER: Awake, alert, and oriented x3. No focal deficit. Impressions: 1. Obstructive sleep apnea-hypopnea syndrome. Patient demonstrated great compliance with treatment, benefiting from treatment. Patient has some problems related to humidity adjustments in CPAP unit. 2. History of insomnia in the past. 3. Status post tubal ligation. Plan: 1. Continue using PAP equipment every night for the whole night. 2. To change air filter at least 1-2 times per month. 3. PAP unit should stay lower then position of the head. 4. Advised patient to remove all remaining water from humidifier canister daily and make it dry after each usage. Refill canister with fresh distilled water before each usage. 5. Sleep hygiene with regular time in bed for at least 8 hours. 6. Precautions related to driving. No driving if feel any sleepiness. 7. I will maintain prescription for PAP supplies including mask, tube, filters. 8. Watching weight. 9. Follow up visit in 6 months or earlier if patient has any problems. Thank you very much for allowing me to participate in the management of your patient. Dereck Ochoa MD, PhD, FAASM. Diplomat of [place] [employer] Medicine, Sleep Medicine Board by [place] [employer] Medicine Lead Assistant Manager of [facility] [place]
== END ==
LOC: 3 N SLEEP 10:18
PROVIDERS: ATTEND Internal Medicine
DX: G47.33 Obstructive sleep apnea (adult) (pediatric) (principal); G47.10 Hypersomnia, unspecified; Z98.51 Tubal ligation status; Z99.89 Dependence on other enabling machines and devices; Z88.0 Allergy status to penicillin; Z91.013 Allergy to seafood
CPT/HCPCS: 99212

== ENCOUNTER → 2024-10-20 | Outpatient (CLI) | payer MEDICARE ==
[2024-10-20 10:14] VITALS: BP 135/78; PULSE 94; RESP 16; TEMP 97.8
--- NOTE | 2024-10-20 10:59 | P.PROGSL ---
Subjective DATE: 10/20/2024 FOLLOW UP VISIT. Patient with obstructive sleep apnea hypopnea syndrome return to sleep center for follow-up visit. Information from previous visit have been reviewed. Patient is using PAP equipment every night for the whole night, getting PAP supplies in time. The patient does not have significant problems with the mask, PAP unit and humidification. [place] sleepiness scale is 3, which is normal. I checked information from PAP unit. PAP unit pressure 8 cm H2O. Usage is 100% for more then 4 hours, average 7.1 hours per night. Leak is 16 l/m, which is in acceptable range. Apnea Hypopnea Index is 0.3, which is normal. MEDICATIONS have been reviewed, please see below. During physical exam: GENERAL: A pleasant patient without any distress. VITAL SIGNS: Please see below, weight is 168 lbs. HEENT: PERRLA, EOMI.low position of soft palate, Mallapati 3. NECK: Supple. No JVD. LUNGS: Clear to percussion and to auscultation. Good air exchange. No wheezing or rhonchi. HEART: S1, S2 regular. ABDOMEN: Soft and nontender.[] EXTREMITIES: No clubbing or cyanosis. PARKS RECREATION COORDINATOR: Awake, alert, and oriented x3. No focal deficit. Impressions: 1. Obstructive sleep apnea-hypopnea syndrome. Patient demonstrated great compliance with treatment, benefiting from treatment. 2. History of insomnia in the past, no problems with sleep at the present time. 3. Status post tubal ligation. Plan: 1. Continue using PAP equipment every night for the whole night. 2. Sleep hygiene with regular time in bed for at least 7.5-8 hours 3. PAP unit should stay lower then position of the head. 4. Advised patient to remove all remaining water from humidifier canister daily and make it dry after each usage. Refill canister with fresh distilled water before each usage. 5. Watching weight. 6. Precautions related to driving. No driving if feel any sleepiness. 7. I will maintain prescription for PAP supplies including mask, tube, filters. 8. Follow up visit in 8 months or earlier if patient has any problems. Thank you very much for allowing me to participate in the management of your patient. Dereck Ochoa MD, PhD, FAASM. Diplomat of [place] [employer] Medicine, Sleep Medicine Board by [employer] Medicine [employer] [facility] [place] Objective - Vital Signs Vital Signs: Vital Signs Temp 97.8 F 10/20/24 10:13 Pulse 94 10/20/24 10:13 Resp 16 10/20/24 10:13 BP 135/78 10/20/24 10:13 Pulse Ox 98 10/20/24 10:13 FiO2 Intake & Output 10/19/24 10/20/24 10/20/24 18:59 06:59 18:59 Weight 76.204 kg Home Medications: Home Medications Medication Instructions Recorded Confirmed Type No Known Home Medications 04/26/20 04/28/20 History
== END ==
LOC: 3 N SLEEP 10:01
PROVIDERS: ATTEND Internal Medicine
DX: G47.33 Obstructive sleep apnea (adult) (pediatric) (principal); Z98.51 Tubal ligation status; Z99.89 Dependence on other enabling machines and devices; Z88.0 Allergy status to penicillin; Z91.013 Allergy to seafood
CPT/HCPCS: 99212

== ENCOUNTER → 2025-02-16 | Outpatient (CLI) | payer MEDICARE ==
--- NOTE | 2025-02-16 08:07 | BD ---
EXAMINATION TYPE: Axial Bone Density DATE OF EXAM: 02/16/2025 CLINICAL HISTORY: 69 years old Female. ICD-10 CODE: M89.9 DISORDER OF BONE, UNSPECIFIED , Additiona l History: Height: 65.4 Weight: 163 FRAX RISK QUESTIONS: History of Fracture in Adulthood: yes 3. Menopause before 45: no 56 RISK FACTORS HISTORY OF: rib fxs last yr MEDICATIONS: vitamins only, vit d included, EXAM MEASUREMENTS: Bone mineral densitometry was performed using the Pluck System. Bone mineral density as measured about the Lumbar spine is: ----- L1-L4(G/cm2): 0.996 T Score Values are as follows: ----- L1: -2.1 ----- L2: -2.0 ----- L3: -1.7 ----- L4: -0.6 ----- L1-L4: -1.5 Z Score Values are as follows: ----- L1: -0.9 ----- L2: -0.7 ----- L3: -0.4 ----- L4: 0.7 ----- L1-L4: -0.2 Bone mineral density has: Decreased -1.9% since study of: Bone mineral density about the R hip (g/cm2): 1.031 Bone mineral density about the L hip (g/cm2): 1.012 T Score values are as follows: -----R Neck: -0.5 -----L Neck: -1.1 -----R Total: 0.2 -----L Total: 0.0 Z Score values are as follows: -----R Neck: 0.9 -----L Neck: 0.3 -----R Total: 1.3 -----L Total: 1.1 Bone mineral density has: Decreased -1.9% since study of: 01.22.2021 FRAX%s: The graph provided illustrates a 14.1% chance for a major osteoporotic fx and a 1.3% chance f or the hips probability for fx in 10 years time. IMPRESSION: Osteopenia (T Score between -2.5 and -1). There is slightly increased risk of fracture and the patient may be considered for treatment. Re-Screen 2-5 years. NOTE: T-SCORE=SD OF THE YOUNG ADULT MEAN. [facility], , 02/16/2025 8:05 AM
== END | disposition home or self-care (01) ==
LOC: RADMAMWWP 06:59
PROVIDERS: ATTEND Internal Medicine Geriatric Medicine
DX: M85.89 Other specified disorders of bone density and structure, multiple sites (principal)
CPT/HCPCS: 77080

== ENCOUNTER → 2025-02-17 | Outpatient (CLI) | payer MEDICARE ==
--- NOTE | 2025-02-17 07:31 | MM ---
Reason for Exam: Screening (asymptomatic). Last mammogram was performed 2 year(s) and 1 month(s) ago. Patient History: Menarche at age 17. First Full-Term at age 27. Postmenopausal. Paternal aunt had breast cancer, age 80. Sister had breast cancer, age 40. Risk Values: Fariha 5 year model risk: 3.1%. NCI Lifetime model risk: 9.8%. Prior Study Comparison: 12/17/2017 Bilateral Screening Mammogram, [facility]. 11/27/2018 Bilateral Screening Mammogram, [facility]. 12/01/2019 Bilateral Screening Mammogram, [facility]. 01/18/2021 Bilateral Screening Mammogram, [facility]. 01/29/2022 Bilateral Diagnostic Mammogram, [facility]. 02/10/2023 Bilateral MG 3D diag mammo w/cad [facility], [facility]. Tissue Density: There are scattered areas of fibroglandular density. Findings: Analyzed By CAD. There is no suspicious group of microcalcifications or new suspicious mass in either breast. Overall Assessment: Negative, BI-RAD 1 Management: Screening Mammogram of both breasts in 1 year. . Patient should continue monthly self-breast exams. A clinical breast exam by your physician is recommended on an annual basis. This exam should not preclude additional follow-up of suspicious palpable abnormalities. Note on Fariha scores and lifetime risk: 1. A Fariha score greater than 3% is considered moderate risk. If this is the case, consider specialist referral to assess eligibility for a risk reducing agent. 2. If overall lifetime risk for the development of breast cancer is 20% or higher, the patient may qualify for future screening with alternating mammogram and breast MRI. [facility], , 02/17/2025 7:28 AM. Electronically signed and approved by: Brady Serra M.D. Radiologis
== END | disposition home or self-care (01) ==
LOC: RADMAMWWP 06:57
PROVIDERS: ATTEND Internal Medicine Geriatric Medicine
DX: Z12.31 Encounter for screening mammogram for malignant neoplasm of breast (principal); R92.323 Mammographic fibroglandular density, bilateral breasts; Z78.0 Asymptomatic menopausal state; Z80.3 Family history of malignant neoplasm of breast
CPT/HCPCS: 77063; 77067